=== PATIENT | male | born 1975 | race Caucasian/White ===

== ENCOUNTER 2020-12-06 11:36 | Emergency (ER) | payer MEDICAID, SELFPAY ==
[2020-12-06 11:47] VITALS: BP 141/92; PULSE 88; RESP 16; TEMP 531; TEMP 987.8; O2SAT 98; BMI 29.1
--- NOTE | 2020-12-06 12:56 | ED.GENADULT ---
HPI - General Adult General Chief complaint: General Medical Stated complaint: sore throat Time Seen by Provider: 12/06/20 12:45 Source: patient Mode of arrival: ambulatory History of Present Illness HPI narrative: 45-year-old male with no significant past medical history presenting to the ED complaining sore throat greater on the left side x2 days with pain with swallowing. Admits tested negative for COVID-19 on 12/04, is tested weekly at work. Denies difficulty/inability to swallow, drooling, hoarseness, ear pain, fever, chills, cough. Does report coworkers at work tested positive for COVID-19 recently Onset (ago): day(s) Related Data Previous Rx's Medication Instructions Recorded amoxicillin-pot clavulanate 1 tab PO Q12H 7 Days #14 tab 12/06/20 [Augmentin] Allergies Allergy/AdvReac Type Severity Reaction Status Date / Time latex [LATEX] Allergy Unknown SWELLING Unverified 05/19/20 15:02 Review of Systems Review of Systems: Constitutional: No Fever, No Chills ENT/Mouth: No Ear Pain, No Nasal Congestion, No Sinus Pain, No Hoarseness, + sore throat, No Rhinorrhea, No Swallowing Difficulty Cardiovascular: No Chest Pain, No SOB Respiratory: No Cough Gastrointestinal: No Nausea, No Vomiting Skin: No Skin Lesions, No rash Yes all other systems are reviewed and are negative PMFSH Past Medical History Attestation statement: The following information was validated with the patient. Medical History (Updated 12/06/20 @ 13:05 by MALCOLM Herron) No known health problems Social History Social History Smoking Status: Current every day smoker Smoked in Last 30 Days: Yes Use of substances other than those prescribed or required for medical reasons: Yes Substance Use Type: Marijuana Substance Use Frequency: Occasionally Advance Directives: No Advance Directives Information Provided: No Physical Exam Vital Signs: Vital Signs: Last Vital Signs Temp 98.4 F 12/06/20 13:17 Pulse 88 12/06/20 11:47 Resp 16 12/06/20 11:47 BP 141/92 H 12/06/20 11:47 Pulse Ox 98 12/06/20 11:47 Body Mass Index 29.1 Const: General: cooperative, healthy appearing and no acute distress Orientation/consciousness: patient oriented x3 Limitations: no limitations HENMT: Head: Yes normal to inspection Ears: hearing grossly normal bilaterally and TM's normal bilaterally General nose exam: Normal external nose present Face and sinus: Yes normal facial exam Mouth: Normal oral and palatal mucosa present, moist mucous membranes, no drooling and no muffled voice Throat: Yes posterior oropharynx normal, Yes tonsils normal, Yes uvula midline, No peritonsillar mass and No uvula laterally displaced Eyes: General: appearance normal, both eyes and all related structures EOM: EOMs intact bilaterally Neck: Neck: Yes normal visual inspection, Yes no meningeal signs and Yes lymphadenopathy (Unilateral left-sided anterior cervical) Resp: Effort & Inspection: normal respiratory effort and no audible wheezes Cardio: Rate: regular rate Skin: Rashes: no rashes Wounds: no wounds Neuro: General: patient oriented x3 and no meningeal signs Gait exam (Neuro): Normal gait present Extrem: General: Yes normal to inspection Course Course Course Narrative: -rapid strep and COVID-19 negative Medical Decision Making MDM Narrative Medical decision making narrative: On exam VSS, NAD/well-appearing, physical exam as above. Unilateral lymphadenopathy appreciated. No clinical evidence of strep pharyngitis. Likely viral syndrome. No evidence of [employer]ING [employer]. Plan: Rapid strep, COVID-19 testing, 1st dose of Augmentin given in the ED Lab Data Labs: Lab Results 12/06/20 Range/Units 13:02 Coronavirus (PCR) NEGATIVE (Negative) Influenza Type A (PCR) NEGATIVE (Negative) Influenza Type B (PCR) NEGATIVE (Negative) RSV RNA Qual (PCR) NEGATIVE (Negative) Discharge Plan Discharge Clinical Impression: Lymphadenopathy Pharyngitis Qualifiers: Pharyngitis/tonsillitis etiology: unspecified etiology Qualified Code(s): J02.9 - Acute pharyngitis, unspecified Patient Disposition: Home, Self-Care Instructions: Pharyngitis (ED) Additional Instructions: You were tested for COVID-19, the flu, and RSV today, the results should be back in 1-2 hours, I will call you with positive or negative results Your also swabbed for strep pharyngitis, if the culture comes back positive you will receive a phone call Augmentin as an antibiotic, take as prescribed If he develops fever, persistent worsening symptoms, inability to swallow, difficulty swallowing, return to the ED Follow-up with your Dr. Prescriptions: New amoxicillin-pot clavulanate [Augmentin] 824-125 mg tablet 1 tab PO Q12H 7 Days Qty: 14 RF: 0 Referrals: ED Physician,Generic [Physician] - 2 days Stand Alone Forms: Work/School Release
[2020-12-06] MEDS: Amoxicillin/Potassium Clav 875 MG TABLET PO (13:14)
[2020-12-06 13:17] VITALS: TEMP 36.9
--- NOTE | 2020-12-06 13:50 | PC.NURSE ---
PT WAITING FOR LAB RESULTS AND WORK NOTE
[2020-12-06 14:03] LABS: Influenza A PCR NEGATIVE (Negative); Influenza B PCR NEGATIVE (Negative); Resp Syncy Virus RNA Qual PCR NEGATIVE (Negative); SARS COV2 PCR INHOUSE NEGATIVE (Negative)
== END 2020-12-06 14:45 | disposition home or self-care (01) ==
PROVIDERS: Physician Assistant; Emergency Provider Emergency Medicine
DX: J02.9 Acute pharyngitis, unspecified (principal); Z20.822 Contact with and (suspected) exposure to COVID-19; F17.200 Nicotine dependence, unspecified, uncomplicated; Z71.6 Tobacco abuse counseling; Z79.899 Other long term (current) drug therapy
CPT/HCPCS: 0241U; 36415; 87071; 87880; 99283; 99284

== ENCOUNTER 2020-12-16 11:17 | Emergency (ER) | payer MEDICAID, SELFPAY ==
[2020-12-16 11:23] VITALS: BP 152/90; PULSE 74; RESP 16; TEMP 36.7; O2SAT 99; BMI 29.1
--- NOTE | 2020-12-16 12:22 | ED_ITS ---
HPI - General Adult General Chief complaint: General Medical Stated complaint: PAIN UPON URINATION Time Seen by Provider: 12/16/20 12:01 Source: patient Mode of arrival: ambulatory Limitations: no limitations History of Present Illness HPI narrative: 45 yo male previously healthy here with complaints of dysuria x 6 days. Patient tells me this occurred 24 hrs after having unprotected sex with his female partner. He denies testicular pain, penile discharge, rashes, lesions, urinary frequency, abdominal pain, vomtiing or fever. He tells me a similar episode occurred last year after intercourse and he was negative for STD's. Occasionally he has some itching and skin irritation which feels internal 'inside my urethra. Related Data Previous Rx's Medication Instructions Recorded amoxicillin-pot clavulanate 1 tab PO Q12H 7 Days #14 tab 12/06/20 [Augmentin] doxycycline monohydrate 100 mg PO BID #14 tab 12/16/20 Allergies Allergy/AdvReac Type Severity Reaction Status Date / Time latex [LATEX] Allergy Unknown SWELLING Unverified 05/19/20 15:02 Review of Systems Review of Systems: Yes all other systems are reviewed and are negative Constitutional: Constitutional: Reports no additional constitutional complaints, Denies chills, Denies fever(s) and Denies headache(s) Eyes: Eyes: Reports no additional eye complaints and Denies change in vision ENT: Reports system reviewed and no additional complaints, except as documented, Denies headache(s), Denies nasal congestion, Denies nasal discharge, Denies neck pain and Denies sore throat Cardiovascular: Cardiovascular: Reports no additional cardiovascular complaints, Denies chest pain, Denies leg edema and Denies dyspnea Respiratory: Respiratory: Reports no additional respiratory complaints, Denies cough and Denies dyspnea Gastrointestinal: Gastrointestinal: Reports no additional gastrointestinal complaints, Denies abdominal pain, Denies diarrhea, Denies nausea and Denies vo miting Genitourinary: Genitourinary: Denies hematuria, Denies difficulty urinating, Reports dysuria, Denies flank pain, Denies penile discharge, Denies testicular pain, Denies urinary frequency, Denies urinary hesitancy, Denies urinary incontinence and Denies urinary urgency Musculoskeletal: Musculoskeletal: Reports no additional musculoskeletal complaints, Denies back pain and Denies neck pain Integumentary/Breasts: Skin/Breast: Reports system reviewed and no additional complaints, except as docu and Denies rash Neurologic: Reports system reviewed and no additional complaints, except as documented, Denies Abnormal speech present and Denies headache(s) COUNTS INCLUDE 234 BEDS AT THE [facility] Past Medical History Attestation statement: The following information was validated with the patient. Source: old records reviewed and nursing notes reviewed Medical History No known health problems Social History Social History Smoking Status: Current every day smoker Substance Use Type: Marijuana Advance Directives: Yes Advance Directives Information Provided: Yes Advance Directives on File: No Physical Exam Vital Signs: Vital Signs: Last Vital Signs Temp 98.1 F 12/16/20 11:23 Pulse 74 12/16/20 11:23 Resp 16 12/16/20 11:23 BP 152/90 H 12/16/20 11:23 Pulse Ox 99 12/16/20 11:23 Body Mass Index 29.1 Const: General: cooperative, healthy appearing, comfortable and no acute distress Orientation/consciousness: patient oriented x3 Limitations: no limitations HENMT: Head: Yes normal to inspection Ears: hearing grossly normal bilaterally General nose exam: Normal external nose present Face and sinus: Yes normal facial exam Mouth: Normal oral and palatal mucosa present Throat: Yes posterior oropharynx normal Eyes: General: appearance normal, both eyes and all related structures Neck: Neck: Yes normal visual inspection Chest: Chest palpation & inspection: normal inspection of the chest Resp: Effort & Inspection: normal respiratory effort Cardio: Peripheral pulses: Peripheral pulses 2+ throughout GI: Inspection: Yes normal to inspection : Other: Pt deferred exam. Back/Spine/Pelvis: Thoracic/Lumbar Spine: thoracic and lumbar spine normal to inspection Skin: General skin exam: no rashes or lesions noted Neuro: General: patient oriented x3 and moves all extremities Cognition (Neuro): normal cognition Speech: No Abnormal speech present Gait exam (Neuro): Normal gait present Extrem: General: Yes normal to inspection Course Course Course Narrative: 45 yo male here with dysuria s/p unprotected intercourse. Deferred exam. UA negative for UTI. CT NG testing sent. Patient treated pptx with ceftriaxone 500mg IM and 7 days of doxycyline. He tells me he has some itching and discomfort which re-occurs from time to time after intercourse and he feels it is quite internal. Again refused exam. Will refer to urology. Reviewed worrisome signs/symptoms with patient and when to seek additional care. Comfortable with discharge home. Medical Decision Making Medical Records Medical records reviewed: Yes I reviewed the patient's medical records. Lab Data Lab results reviewed: Yes I reviewed the patient's lab results. Labs: Lab Results 12/16/20 Range/Units 12:15 Urine Color YELLOW Urine Appearance CLEAR Urine pH 7.5 (5.0-8.0) Ur Specific [place] 1.020 (1.005-1.025) Urine Protein NEG (NEG-TRACE) MG/DL Urine Glucose (UA) NEG (NEG) MG/DL Urine Ketones NEG (NEG) MG/DL Urine Blood NEG (NEG) Urine Nitrite NEG (NEG) Ur Leukocyte Esterase NEG (NEG) Discharge Plan Discharge Clinical Impression: Dysuria Patient Disposition: Home, Self-Care Instructions: Dysuria (ED) Additional Instructions: Follow-up with urology Continue all antibiotics. We will call you tomorrow if positive Prescriptions: New doxycycline monohydrate 100 mg tablet 100 mg PO BID Qty: 14 RF: 0 No Action amoxicillin-pot clavulanate [Augmentin] 875-125 mg tablet 1 tab PO Q12H 7 Days Qty: 14 RF: 0 Referrals: Bishop Bates MD [Physician] - 2 days Interventions: ED Discharge Assessment Last Done: 12/16/20 13:07 Discharge Date/Time: 12/16/20 13:08
[2020-12-16 12:27] LABS: Glucose Urine UA NEG (NEG); Leukocyte Esterase Urine NEG (NEG); Nitrite Urine NEG (NEG); PH 7.5 (5.0-8.0); Urine Blood NEG (NEG); Urine Ketones NEG (NEG); Urine Protein NEG (NEG-TRACE)
[2020-12-16 12:28] LABS: Appearance Urine CLEAR; Color Urine YELLOW
[2020-12-16] MEDS: cefTRIAXone sodium 500 MG, Lidocaine HCl 1 % MPF 1 ML IM (12:47)
--- NOTE | 2020-12-16 13:07 | PC.NURSE ---
No reaction to im abx noted.
[2020-12-16 14:16] LABS: CT PCR NOT DETECTED (Not Detect.); NG PCR NOT DETECTED (Not Detect.)
== END 2020-12-16 13:08 | disposition home or self-care (01) ==
PROVIDERS: Nurse Practitioner Family; Emergency Provider Emergency Medicine Emergency Medical Services
DX: R30.0 Dysuria (principal); F12.90 Cannabis use, unspecified, uncomplicated; Z20.2 Contact with and (suspected) exposure to infections with a predominantly sexual mode of transmission; Z79.899 Other long term (current) drug therapy
CPT/HCPCS: 81003; 87491; 87591; 96372; 99283; 99284; J0696

== ENCOUNTER 2021-02-09 09:00 | Emergency (ER) | payer MEDICAID, SELFPAY ==
[2021-02-09 09:18] VITALS: BP 153/86; PULSE 77; RESP 16; TEMP 36.6; O2SAT 99; BMI 29.1
--- NOTE | 2021-02-09 09:54 | ED_ITS ---
HPI - URI/Sore Throat General Chief Complaint: Upper Respiratory Symptoms Stated Complaint: difficulty swallowing & ear pain lt side only Time Seen by Provider: 02/09/21 09:37 Source: patient Mode of arrival: ambulatory Limitations: no limitations History of Present Illness HPI Narrative: 46-year-old male with a past medical history of TMJ syndrome, candidiasis, gingivitis, anxiety reaction, depression, sciatica and lumbar radiculopathy presenting to the ED with complaints of sore throat radiating to the left ear for the past 2 days worse today. Reports that he has also had bilateral ringing in his ears for approximately 2 months. Reports that he was seen here approximately 2 months ago and treated for strep throat with antibiotics report his symptoms completely resolve except for the ringing in the ears. He denies any fevers, nasal congestion/runny nose, trouble swallowing or breathing, drainage from the ear, cough, chest pain, shortness of breath, nausea/vomiting/diarrhea/constipation, abdominal pain or any other symptoms complaints or concerns at this time. Denies recent travel or sick contacts. Denies recent dental work. Denies recent hospitalization. MD elicited complaint: sore throat and other (Left ear pain) Onset (ago): day(s) (2) Consistency: constant Severity: moderate Able to tolerate fluids by mouth: Yes Exacerbating factors: swallowing Relieving factors: nothing Associated symptoms: denies other symptoms Treatments prior to arrival: none Related Data Previous Rx's Medication Instructions Recorded amoxicillin-pot clavulanate 1 tab PO Q12H 7 Days #14 tab 12/06/20 [Augmentin] doxycycline monohydrate 100 mg PO BID #14 tab 12/16/20 acetaminophen [Tylenol Extra 1,000 mg PO QID PRN #14 tab 02/09/21 Strength] amoxicillin-pot clavulanate 1 tab PO BID 10 Days #20 tab 02/09/21 [Augmentin] dexamethasone [Decadron] 6 mg PO DAILY #1 tab 02/09/21 ibuprofen 800 mg PO Q8H PRN #14 tab 02/09/21 Allergies Allergy/AdvReac Type Severity Reaction Status Date / Time latex [LATEX] Allergy Unknown SWELLING Unverified 05/19/20 15:02 Review of Systems Review of Systems: Constitutional : No Fever, No Chills, No fatigue, No Malaise ENT/Mouth : Positive sore throat/left ear pain, No runny nose Eyes: No Discharge Cardiovascular : No Chest Pain, No SOB Respiratory : No Cough, No Sputum, No Wheezing, No Smoke Exposure, No Dyspnea Gastrointestinal : No Nausea, No Vomiting, No Diarrhea Genitourinary : No irregular bleeding, No Dysuria, No Urinary Frequency, No Hematuria, No Urinary Incontinence, No Urgency, No Flank Pain, Musculoskeletal : No Myalgia Skin : No rash Neuro : No Headache Yes all other systems are reviewed and are negative [facility] Past Medical History Attestation statement: The following information was validated with the patient. Social History Social History Substance Use Type: Marijuana Advance Directives: No Advance Directives Information Provided: No Physical Exam Vital Signs: Vital Signs: Last Vital Signs Temp 97.8 F 02/09/21 09:18 Pulse 77 02/09/21 09:18 Resp 16 02/09/21 09:18 BP 153/86 H 02/09/21 09:18 Pulse Ox 99 02/09/21 09:18 Body Mass Index 29.1 vital signs have been reviewed as normal and appeared to be correct. Blood pressure normal. Heart rate normal. Respiration rate normal. Temperature normal. Oxygen saturation normal. Appearance: Alert. Oriented X3. No acute distress. Head: Normal external exam. Normocephalic. Atraumatic. Eyes: PERRLA. EOMI. Conjunctiva and sclera normal. Eyelids normal. ENT: EAC normal. TM's Normal. Posterior pharynx mildly erythematous with scattered exudate noted. Uvula midline. Moist mucous membranes. No trismus noted. No drooling noted. No muffled voice noted. Neck: Normal inspection. Neck supple. FROM. No adenopathy. Thyroid Normal. No meningeal signs. No neck mass noted. CVS: Normal heart rate and rhythm. Heart sound normal. Pulses normal throughout. No murmurs/rales/gallops. Respiratory: No respiratory distress. Painless inspiration. Breath sounds normal. No wheezes/rales/rhonchi noted. Chest nontender. No accessory muscle usage noted or decreased air movement noted. Back: Full range of motion noted. No rashes/lesion/induration/fluctuance or signs of infection noted. Skin: Skin warm and dry. Normal skin color. Normal skin turgor. No rashes/lesions/lacerations noted. Extremities: Extremities exhibit normal range of motion. Extremities nontender. Neuro: Oriented X 3. No motor deficit. No sensory deficit. Reflexes normal. Normal steady gait. No focal neuro deficits noted. Course Course Course Narrative: 46-year-old male with a past medical history of TMJ syndrome, candidiasis, gingivitis, anxiety reaction, depression, sciatica and lumbar radiculopathy presenting to the ED with complaints of sore throat radiating to the left ear for the past 2 days worse today. Reports that he has also had bilateral ringing in his ears for approximately 2 months. - on exam bilateral tympanic membranes within normal limits. Posterior pharynx mildly erythematous with exudate noted. Therefore rapid strep ordered at this time. Patient declined COVID/RSV/flu swab. Reports that he gets tested for COVID every 2 weeks due to he works for [employer] and he was just tested on and was negative. Patient is tolerating secretions well. No drooling or trismus noted. Not consistent with peritonsillar abscess. Not consistent with pharyngeal abscess. Not consistent with dental abscess. Will DC home with antibiotics and symptomatic treatment along with instructions return if any new or worsening symptoms to follow up with primary care provider. Patient understands agrees with this plan. MDM - URI/Sore Throat Medical Records Attestation: I reviewed the patient's medical records. Lab Data Attestation: I reviewed the patient's lab results. Discharge Plan Discharge Clinical Impression: Pharyngitis, Bilateral tinnitus Patient Disposition: Home, Self-Care Instructions: Pharyngitis (ED), Tinnitus (ED) Prescriptions: New amoxicillin-pot clavulanate [Augmentin] 875-125 mg tablet 1 tab PO BID 10 Days Qty: 20 RF: 0 dexamethasone [Decadron] 6 mg tablet 6 mg PO DAILY Qty: 1 RF: 0 ibuprofen 800 mg tablet 800 mg PO Q8H PRN (Reason: pain) Qty: 14 RF: 0 acetaminophen [Tylenol Extra Strength] 500 mg tablet 1,000 mg PO QID PRN (Reason: fever or pain) Qty: 14 RF: 0 No Action amoxicillin-pot clavulanate [Augmentin] 875-125 mg tablet 1 tab PO Q12H 7 Days Qty: 14 RF: 0 doxycycline monohydrate 100 mg tablet 100 mg PO BID Qty: 14 RF: 0 Referrals: Shamar Pugh [Physician] - 2 days Stand Alone Forms: Work/School Release Print Language: Urdu
[2021-02-09 10:43] LABS: Strep A Nucleic Acid Negative (Negative)
== END 2021-02-09 10:35 | disposition home or self-care (01) ==
PROVIDERS: Physician Assistant Medical; Emergency Provider Emergency Medicine Emergency Medical Services
DX: J02.9 Acute pharyngitis, unspecified (principal); H93.13 Tinnitus, bilateral
CPT/HCPCS: 36415; 87651; 99283

== ENCOUNTER 2022-11-01 16:19 | Emergency (ER) | payer MEDICAID, SELFPAY ==
--- NOTE | ~2022-11-01 | XR_ITS ---
EXAMINATION: XR CHEST CLINICAL INFORMATION: Shortness of breath. COMPARISON: Chest radiograph 08/01/2006. TECHNIQUE: 2 views of the chest were obtained. FINDINGS: No significant abnormality is noted involving the heart, lungs, mediastinum, bony thorax or soft tissues. XR/XR chest 2V IMPRESSION: Unremarkable examination.
[2022-11-01 16:30] VITALS: BP 153/86; PULSE 67; RESP 20; TEMP 36.7; O2SAT 99; BMI 29.1
--- NOTE | 2022-11-01 16:38 | ED.GENADULT ---
HPI - General Adult General Chief complaint: Upper Respiratory Symptoms <Abel Frances - Last Filed: 11/01/22 16:39> Stated complaint: Coughing up blood <Abel Frances - Last Filed: 11/01/22 16:39> Time Seen by Provider: 11/01/22 17:01 <Abel Frances - Last Filed: 11/01/22 16:39> Source: patient <MALCOLM Hayward - Last Filed: 11/01/22 17:53> Mode of arrival: ambulatory <MALCOLM Hayward - Last Filed: 11/01/22 17:53> Limitations: no limitations <MALCOLM Hayward Last Filed: 11/01/22 17:53> History of Present Illness HPI narrative: 47-year-old male with history of anxiety, depression, sciatica who presents to the ER for evaluation of blood-tinged sputum for 2 of the last 3 days. He recently quit smoking cigarettes and vaping marijuana 1 week ago. He reports after vaping he had an extensive coughing fit. The next morning he had an episode of blood-tinged sputum when in the shower. It happened twice that day. He had no cough or phlegm production the next day. He states yesterday he had 2 more occurrences of blood-tinged sputum. No gross hemoptysis. No chest pain or shortness of breath. No fevers or chills. No leg swelling or calf swelling. <MALCOLM Hayward - Last Filed: 11/01/22 17:53> MD complaint: Blood-tinged sputum, cough <MALCOLM Hayward Last Filed: 11/01/22 17:53> Onset (ago): day(s) <MALCOLM Hayward Last Filed: 11/01/22 17:53> Location: chest <MALCOLM Hayward Last Filed: 11/01/22 17:53> Radiation: non-radiation <MALCOLM Hayward Last Filed: 11/01/22 17:53> Pain Consistency: intermittent <MALCOLM Hayward Last Filed: 11/01/22 17:53> Relieving factors: none <MALCOLM Hayward Last Filed: 11/01/22 17:53> Exacerbating factors: none <MALCOLM Hayward - Last Filed: 11/01/22 17:53> Associated symptoms: cough <MALCOLM Hayward - Last Filed: 11/01/22 17:53> Treatments prior to arrival: none <MALCOLM Hayward - Last Filed: 11/01/22 17:53> Related Data Home medications: Previous Rx's Medication Instructions Recorded amoxicillin 875 mg-potassium 1 tab PO Q12H 7 days #14 tabs 12/06/20 clavulanate 125 mg tablet (Augmentin) doxycycline monohydrate 100 mg 100 mg PO BID #14 tabs 12/16/20 tablet acetaminophen 500 mg tablet 1,000 mg PO QID PRN fever or pain 02/09/21 (Tylenol Extra Strength) #14 tabs amoxicillin 875 mg-potassium 1 tab PO BID 10 days #20 tabs 02/09/21 clavulanate 125 mg tablet (Augmentin) dexamethasone 6 mg tablet 6 mg PO DAILY #1 tab 02/09/21 (Decadron) ibuprofen 800 mg tablet 800 mg PO Q8H PRN pain #14 tabs 02/09/21 albuterol sulfate 90 mcg/actuation 2 puff inhalation Q4-6H PRN 11/01/22 aerosol inhaler (Ventolin HFA) shortness of breath or wheezing #8.5 grams azithromycin 250 mg tablet See Rx Instructions PO .COMPLEX #6 11/01/22 (Zithromax Z-Blayne) tabs prednisone 20 mg tablet 40 mg PO DAILY #10 tabs 11/01/22 <Abel Frances - Last Filed: 11/01/22 16:39> Allergies/adverse reactions: Allergies Allergy/AdvReac Type Severity Reaction Status Date / Time latex [LATEX] Allergy Unknown SWELLING Unverified 05/19/20 15:02 <Abel Frances - Last Filed: 11/01/22 16:39> Review of Systems Review of Systems: Yes all other systems are reviewed and are negative <MALCOLM Hayward - Last Filed: 11/01/22 17:53> [facility] Social History Social History: Social History Substance Use Type: Marijuana Advance Directives: No Advance Directives Information Provided: No <Abel Frances - Last Filed: 11/01/22 16:39> Physical Exam ED Vital Signs: Vital Signs - 24 hr 11/01/22 16:30 Temperature 98.0 F Pulse Rate 67 Respiratory Rate 20 Blood Pressure 153/86 H Pulse Oximetry 99 Oxygen Delivery Method Room Air BMI result Body Mass Index 29.1 <Abel Frances - Last Filed: 11/01/22 16:39> Vital Signs - 24 hr 11/01/22 16:30 Temperature 98.0 F Pulse Rate 67 Respiratory Rate 20 Blood Pressure 153/86 H Pulse Oximetry 99 Oxygen Delivery Method Room Air BMI result Body Mass Index 29.1 <MALCOLM Hayward - Last Filed: 11/01/22 17:53> Appearance: Alert. Oriented X3. No acute distress. Eyes: Pupils equal, round and reactive to light. ENT: Pharynx normal. moist mucus membranes, no evidence of recent epistaxis Neck: Normal inspection. Neck supple. CVS: Normal heart rate and rhythm. Pulses normal. Respiratory: No respiratory distress. Breath sounds with end expiratory wheezes in LLL and RUL only. dry cough Abdomen: Soft and nontender. +BS x4 Skin: Skin warm and dry. Normal skin color. Normal skin turgor. No rashes. Extremities: No lower extremity edema. No leg swelling Neuro: Oriented X 3. grossly normal nonfocal <MALCOLM Hayward - Last Filed: 11/01/22 17:53> Course Course Course Narrative: 47-year-old male who denies any past medical history presents for evaluation of cough and ?coughing up blood. ? Patient describes the blood as blood-tinged sputum. He denies significant shortness of breath. He reports that he quit smoking cigarettes last week. He has not had any blood thinners. The patient is well-appearing with stable vital signs Plan to check labs and chest x-ray <Abel Frances - Last Filed: 11/01/22 16:39> Reevaluation(s) Reevaluation #1: Patient's workup was unremarkable. Chest x-ray is clear. Most likely has bronchitis. Will treat accordingly. Stable for discharge home. <MALCOLM Hayward - Last Filed: 11/01/22 17:53> Medical Decision Making Medical Decision Making [facility] [place] Narrative: 47-year-old male presenting to the ER for evaluation of blood-tinged sputum for the last 2/3 days. No associated chest pain or shortness of breath. He recently quit cigarette and marijuana smoking 1 week ago. He has been coughing. Symptoms are most likely related to acute bronchitis. Doubt acute PE, no evidence of DVT on examination. He is not tachycardic or hypoxic. He has no chest pain or shortness of breath. Will treat for acute bronchitis and have him follow-up with his PCP. He was given strict return precautions. <MALCOLM Hayward - Last Filed: 11/01/22 17:53> Differential Diagnosis Differential Diagnoses: The differential diagnosis associated with the presentation includes <MALCOLM Hayward - Last Filed: 11/01/22 17:53> Acute bronchitis, pneumonia, viral syndrome, nose bleed, less likely PE <MALCOLM Hayward - Last Filed: 11/01/22 17:53> Lab Data [facility] [place] Lab Attestation statement: I reviewed the patient's lab results. <MALCOLM Hayward - Last Filed: 11/01/22 17:53> Lab workup was unremarkable, no metabolic derangement <MALCOLM Hayward - Last Filed: 11/01/22 17:53> Result Diagrams: 11/01/22 17:00 11/01/22 17:00 <Abel Frances - Last Filed: 11/01/22 16:39> Labs: Lab Results 11/01/22 11/01/22 11/01/22 Range/Units 17:00 17:00 17:00 WBC 9.7 (4.8-10.8) X10*3/uL RBC 5.17 (4.60-5.80) X10*6/uL Hgb 16.1 (14.0-18.0) g/dl Hct 46.5 (42.0-52.0) % MCV 89.9 (80.0-98.0) fL MCH 31.1 (27.0-33.0) pg MCHC 34.6 (31.0-36.0) g/dl RDW 12.1 (11.0-16.0) % Plt Count 224 (160-400) X10*3/uL MPV 10.4 (9.4-12.4) fL Immature Gran % (Auto) 0.3 (0.0-0.4) % Neut % (Auto) 67.6 (45-73) % Lymph % (Auto) 22.5 (20-40) % [place] % (Auto) 8.0 (2-11) % Eos % (Auto) 0.9 (0-4) % Baso % (Auto) 0.7 (0-2) % Lymph # (Auto) 2.2 (1.2-4.9) X10*3/uL [place] # (Auto) 0.8 (0.1-1.2) X10*3/uL Eos # (Auto) 0.1 (0.0-0.4) X10*3/uL Baso # (Auto) 0.1 (0.0-0.2) X10*3/uL Abs Immat Gran (auto) 0.03 (0.00-0.03) X10*3/uL Absolute Neuts (auto) 6.6 (2.0-8.3) x10*3/uL Absolute Nucleated RBC 0.000 (0.0-0.012) X10*3/uL Nucleated RBC % (auto) 0.0 (0.0-0.2) /100WBC Sodium 140 (135-145) mmol/L Potassium 4.4 (3.3-5.1) mmol/L Chloride 103 (96-108) mmol/L Carbon Dioxide 26 (22-29) mmol/L Anion Gap 15 (12-20) BUN 15 (9-16) mg/dL Creatinine 1.18 (0.5-1.4) mg/dL Estim Creat Clear Calc 95.6 Estimated GFR > 60 Random Glucose 105 (60-115) mg/dL Calcium 9.0 (8.4-10.2) mg/dL Total Bilirubin 0.6 (0.0-1.0) mg/dL AST 21 (5-37) U/L ALT 36 (0-40) U/L Alkaline Phosphatase 61 (39-117) U/L Total Protein 7.0 (6.5-8.0) g/dL Albumin 4.4 (3.5-5.0) g/dL COVID-19 (ROBERTO) Negative (Negative) COVID-19 Clin Com See Note Influenza Type A (ETHEL) (Negative) Influenza Type B (ETHEL) (Negative) Influenza A & B Note 11/01/22 Range/Units 17:00 WBC (4.8-10.8) X10*3/uL RBC (4.60-5.80) X10*6/uL Hgb (14.0-18.0) g/dl Hct (42.0-52.0) % MCV (80.0-98.0) fL MCH (27.0-33.0) pg MCHC (31.0-36.0) g/dl RDW (11.0-16.0) % Plt Count (160-400) X10*3/uL MPV (9.4-12.4) fL Immature Gran % (Auto) (0.0-0.4) % Neut % (Auto) (45-73) % Lymph % (Auto) (20-40) % [place] % (Auto) (2-11) % Eos % (Auto) (0-4) % Baso % (Auto) (0-2) % Lymph # (Auto) (1.2-4.9) X10*3/uL [place] # (Auto) (0.1-1.2) X10*3/uL Eos # (Auto) (0.0-0.4) X10*3/uL Baso # (Auto) (0.0-0.2) X10*3/uL Abs Immat Gran (auto) (0.00-0.03) X10*3/uL Absolute Neuts (auto) (2.0-8.3) x10*3/uL Absolute Nucleated RBC (0.0-0.012) X10*3/uL Nucleated RBC % (auto) (0.0-0.2) /100WBC Sodium (135-145) mmol/L Potassium (3.3-5.1) mmol/L Chloride (96-108) mmol/L Carbon Dioxide (22-29) mmol/L Anion Gap (12-20) BUN (9-16) mg/dL Creatinine (0.5-1.4) mg/dL Estim Creat Clear Calc Estimated GFR Random Glucose (60-115) mg/dL Calcium (8.4-10.2) mg/dL Total Bilirubin (0.0-1.0) mg/dL AST (5-37) U/L ALT (0-40) U/L Alkaline Phosphatase (39-117) U/L Total Protein (6.5-8.0) g/dL Albumin (3.5-5.0) g/dL COVID-19 (ROBERTO) (Negative) COVID-19 Clin Com Influenza Type A (ETHEL) Negative (Negative) Influenza Type B (ETHEL) Negative (Negative) Influenza A & B Note See Note <Abel JoelMacoupin - Last Filed: 11/01/22 16:39> Lab Results 11/01/22 11/01/22 11/01/22 Range/Units 17:00 17:00 17:00 WBC 9.7 (4.8-10.8) X10*3/uL RBC 5.17 (4.60-5.80) X10*6/uL Hgb 16.1 (14.0-18.0) g/dl Hct 46.5 (42.0-52.0) % MCV 89.9 (80.0-98.0) fL MCH 31.1 (27.0-33.0) pg MCHC 34.6 (31.0-36.0) g/dl RDW 12.1 (11.0-16.0) % Plt Count 224 (160-400) X10*3/uL MPV 10.4 (9.4-12.4) fL Immature Gran % (Auto) 0.3 (0.0-0.4) % Neut % (Auto) 67.6 (45-73) % Lymph % (Auto) 22.5 (20-40) % [place] % (Auto) 8.0 (2-11) % Eos % (Auto) 0.9 (0-4) % Baso % (Auto) 0.7 (0-2) % Lymph # (Auto) 2.2 (1.2-4.9) X10*3/uL [place] # (Auto) 0.8 (0.1-1.2) X10*3/uL Eos # (Auto) 0.1 (0.0-0.4) X10*3/uL Baso # (Auto) 0.1 (0.0-0.2) X10*3/uL Abs Immat Gran (auto) 0.03 (0.00-0.03) X10*3/uL Absolute Neuts (auto) 6.6 (2.0-8.3) x10*3/uL Absolute Nucleated RBC 0.000 (0.0-0.012) X10*3/uL Nucleated RBC % (auto) 0.0 (0.0-0.2) /100WBC Sodium 140 (135-145) mmol/L Potassium 4.4 (3.3-5.1) mmol/L Chloride 103 (96-108) mmol/L Carbon Dioxide 26 (22-29) mmol/L Anion Gap 15 (12-20) BUN 15 (9-16) mg/dL Creatinine 1.18 (0.5-1.4) mg/dL Estim Creat Clear Calc 95.6 Estimated GFR > 60 Random Glucose 105 (60-115) mg/dL Calcium 9.0 (8.4-10.2) mg/dL Total Bilirubin 0.6 (0.0-1.0) mg/dL AST 21 (5-37) U/L ALT 36 (0-40) U/L Alkaline Phosphatase 61 (39-117) U/L Total Protein 7.0 (6.5-8.0) g/dL Albumin 4.4 (3.5-5.0) g/dL COVID-19 (ROBERTO) Negative (Negative) COVID-19 Clin Com See Note Influenza Type A (ETHEL) (Negative) Influenza Type B (ETHEL) (Negative) Influenza A & B Note 11/01/22 Range/Units 17:00 WBC (4.8-10.8) X10*3/uL RBC (4.60-5.80) X10*6/uL Hgb (14.0-18.0) g/dl Hct (42.0-52.0) % MCV (80.0-98.0) fL MCH (27.0-33.0) pg MCHC (31.0-36.0) g/dl RDW (11.0-16.0) % Plt Count (160-400) X10*3/uL MPV (9.4-12.4) fL Immature Gran % (Auto) (0.0-0.4) % Neut % (Auto) (45-73) % Lymph % (Auto) (20-40) % [place] % (Auto) (2-11) % Eos % (Auto) (0-4) % Baso % (Auto) (0-2) % Lymph # (Auto) (1.2-4.9) X10*3/uL [place] # (Auto) (0.1-1.2) X10*3/uL Eos # (Auto) (0.0-0.4) X10*3/uL Baso # (Auto) (0.0-0.2) X10*3/uL Abs Immat Gran (auto) (0.00-0.03) X10*3/uL Absolute Neuts (auto) (2.0-8.3) x10*3/uL Absolute Nucleated RBC (0.0-0.012) X10*3/uL Nucleated RBC % (auto) (0.0-0.2) /100WBC Sodium (135-145) mmol/L Potassium (3.3-5.1) mmol/L Chloride (96-108) mmol/L Carbon Dioxide (22-29) mmol/L Anion Gap (12-20) BUN (9-16) mg/dL Creatinine (0.5-1.4) mg/dL Estim Creat Clear Calc Estimated GFR Random Glucose (60-115) mg/dL Calcium (8.4-10.2) mg/dL Total Bilirubin (0.0-1.0) mg/dL AST (5-37) U/L ALT (0-40) U/L Alkaline Phosphatase (39-117) U/L Total Protein (6.5-8.0) g/dL Albumin (3.5-5.0) g/dL COVID-19 (ROBERTO) (Negative) COVID-19 Clin Com Influenza Type A (ETHEL) Negative (Negative) Influenza Type B (ETHEL) Negative (Negative) Influenza A & B Note See Note <MALCOLM Hayward - Last Filed: 11/01/22 17:53> Independent Interpretation I performed an independent interpretation of an: Plain X-Ray <MALCOLM Hayward - Last Filed: 11/01/22 17:53> Interpretation: Chest x-ray reviewed, no evidence of infiltrate, effusion. <MALCOLM Hayward - Last Filed: 11/01/22 17:53> Radiology Impression Discussion of test interpretation with radiology: I have reviewed the radiologist's reading. <MALCOLM Hayward - Last Filed: 11/01/22 17:53> Radiologist Impression: FINDINGS: No significant abnormality is noted involving the heart, lungs, mediastinum, bony thorax or soft tissues. XR/XR chest 2V IMPRESSION: Unremarkable examination. <MALCOLM Hayward - Last Filed: 11/01/22 17:53> External Record Review External record reviewed: Outpatient record and Prior outpatient labs <MALCOLM Hayward - Last Filed: 11/01/22 17:53> Tests considered The following testing was considered but not selected: CTA considered, deferred at this time given acute bronchitis is the most likely diagnosis. <MALCOLM Hayward - Last Filed: 11/01/22 17:53> Prescription Management I considered prescription management with: Antibiotic <MALCOLM Hayward - Last Filed: 11/01/22 17:53> Chronic Conditions Patient?s care impacted by: Other (History of cigarette smoking, recently quit. Most likely having an effect on his current symptoms.) <MALCOLM Hayward - Last Filed: 11/01/22 17:53> Scores Wells PE Hemoptysis: 1 <MALCOLM Hayward - Last Filed: 11/01/22 17:53> Score: 1 <MALCOLM Hayward - Last Filed: 11/01/22 17:53> 2-tier Risk: unlikely risk (5%) <MALCOLM Hayward - Last Filed: 11/01/22 17:53> 3-tier Risk: low risk (3.4%) <MALCOLM Hayward - Last Filed: 11/01/22 17:53> Critical Care Time Critical Care Time Critical Care Time: No <MALCOLM Hayward - Last Filed: 11/01/22 17:53> Discharge Plan Discharge Clinical Impression: Bronchitis <Abel Frances - Last Filed: 11/01/22 16:39> Patient Disposition: Home, Self-Care <Abel Frances - Last Filed: 11/01/22 16:39> Instructions: Acute Bronchitis (ED) <Abel Frances - Last Filed: 11/01/22 16:39> Additional Instructions: Your lab work and chest x-ray today were unremarkable. You most likely have acute bronchitis. Take the prescribed antibiotic and steroids for this. Use the prescribed albuterol inhaler as needed for wheezing. Recommend using a humidifier next to your bedside at home to keep the are moist. If you develop new or worsening symptoms call 911 or come back to the ER for further evaluation. <Abel Frances - Last Filed: 11/01/22 16:39> Prescriptions: New azithromycin [Zithromax Z-Blayne] 250 mg tablet See Rx Instructions .ROUTE .COMPLEX Qty: 6 0RF Rx Instructions: take 500 mg today (day 1), then 250 mg for 4 days (days 2-5) prednisone 20 mg tablet 40 mg PO DAILY Qty: 10 0RF albuterol sulfate [Ventolin HFA] 90 mcg/actuation HFA aerosol inhaler 2 puff inhalation Q4-6H PRN (Reason: shortness of breath or wheezing) Qty: 8.5 0RF No Action amoxicillin-pot clavulanate [Augmentin] 875-125 mg tablet 1 tab PO Q12H 7 Days Qty: 14 0RF doxycycline monohydrate 100 mg tablet 100 mg PO BID Qty: 14 0RF amoxicillin-pot clavulanate [Augmentin] 875-125 mg tablet 1 tab PO BID 10 Days Qty: 20 0RF dexamethasone [Decadron] 6 mg tablet 6 mg PO DAILY Qty: 1 0RF Rx Instructions: Take this single tab today ibuprofen 800 mg tablet 800 mg PO Q8H PRN (Reason: pain) Qty: 14 0RF acetaminophen [Tylenol Extra Strength] 500 mg tablet 1,000 mg PO QID PRN (Reason: fever or pain) Qty: 14 0RF <Abel Frances - Last Filed: 11/01/22 16:39> Referrals: [facility] [Primary Care Provider] - <Abel Frances - Last Filed: 11/01/22 16:39>
[2022-11-01 17:05] LABS: MANUAL DIFF FLAG NO
[2022-11-01 17:14] LABS: Basophils Absolute Auto 0.1 X10*3/uL (0.0-0.2); Basophils Percent Auto 0.7 % (0-2); Eosinophils Absolute Auto 0.1 X10*3/uL (0.0-0.4); Eosinophils Percent Auto 0.9 % (0-4); Hematocrit 46.5 % (42.0-52.0); Hemoglobin 16.1 g/dl (14.0-18.0); Imm Gran Abs Auto 0.03 X10*3/uL (0.00-0.03); Imm Gran Pct Auto 0.3 % (0.0-0.4); Lymphocytes Absolute Auto 2.2 X10*3/uL (1.2-4.9); Lymphocytes Percent Auto 22.5 % (20-40); Mean Corpuscular HGB Conc 34.6 g/dl (31.0-36.0); Mean Corpuscular Hemoglobin 31.1 pg (27.0-33.0); Mean Corpuscular Volume 89.9 fL (80.0-98.0); Mean Platelet Volume 10.4 fL (9.4-12.4); Monocytes Absolute Auto 0.8 X10*3/uL (0.1-1.2); Neutrophils Absolute Auto 6.6 x10*3/uL (2.0-8.3); Neutrophils Percent Auto 67.6 % (45-73); Platelet Count 224 X10*3/uL (160-400); Red Blood Count 5.17 X10*6/uL (4.60-5.80); Red Cell Distribution Width 12.1 % (11.0-16.0); White Blood Count 9.7 X10*3/uL (4.8-10.8)
[2022-11-01 17:23] LABS: IDNOW Serial# BCCEAD1C; Influenza A Negative (Negative); Influenza B2 Negative (Negative)
[2022-11-01 17:30] LABS: Alanine Aminotransferase 36 U/L (0-40); Albumin Level 4.4 g/dL (3.5-5.0); Alkaline Phosphatase 61 U/L (39-117); Anion Gap 15 (12-20); Aspartate Amino Transferase 21 U/L (5-37); Bilirubin Total 0.6 mg/dL (0.0-1.0); Blood Urea Nitrogen 15 mg/dL (9-16); Carbon Dioxide 26 mmol/L (22-29); Chloride 103 mmol/L (96-108); Creatinine Clr Calc Pharmacy 95.6; Estimated Glomerular Filt Rate > 60; Glucose Random 105 mg/dL (60-115); Potassium 4.4 mmol/L (3.3-5.1); Sodium 140 mmol/L (135-145)
[2022-11-01 17:33] LABS: COVID-19 Test Negative (Negative); IDNOW Serial# 16C4AD1C
== END 2022-11-01 18:07 | disposition home or self-care (01) ==
PROVIDERS: Physician Assistant; Emergency Provider Student in an Organized Health Care Education/Training Program
DX: J40 Bronchitis, not specified as acute or chronic (principal); R05.9 Cough, unspecified; Z20.822 Contact with and (suspected) exposure to COVID-19; Z20.828 Contact with and (suspected) exposure to other viral communicable diseases; Z79.899 Other long term (current) drug therapy
CPT/HCPCS: 36415; 71046; 80053; 85025; 87502; 87635; 99282; 99283